=== PATIENT | male | born 1970 | race Native Hawaiian/Other Pacific Islander ===

== ENCOUNTER 2018-09-15 12:41 | Emergency (ER) | payer BC ==
[2018-09-15 12:56] VITALS: BMI 27.8
[2018-09-15 13:02] VITALS: TEMP 97.7
[2018-09-15] MEDS ORDERED: Sodium Chloride 0.9% 1,000 ML IV ONE ×2 (14:25→15:20)
[2018-09-15 14:50] LABS: BASO % 0.3 % (0.0-2.0); EOS % 0.4 % (0.0-4.0); HEMOGLOBIN 15.1 g/dL (12.0-18.0); LYMPH # 0.7 K/uL (1.0-4.3); LYMPH % 10.6 % (20.0-40.0); MEAN CELL VOLUME 89.8 fL (80.0-94.0); MEAN CORPUSCULAR HEMOGLOBIN 30.6 pg (27.0-31.0); MONO # 0.4 K/uL (0.0-0.8); MONO % 6.4 % (0.0-10.0); NEUT % 82.3 % (50.0-75.0); NRBC % 0.1 % (0.0-2.0); RBC 4.94 Mil/uL (4.40-5.90); RED CELL DISTRIBUTION WIDTH 13.3 % (11.5-14.5); WHITE BLOOD COUNT 6.1 K/uL (4.8-10.8)
[2018-09-15] MEDS ORDERED: Sodium Chloride 0.9% 1,000 ML ONE (14:53)
--- NOTE | 2018-09-15 14:57 | C.PDOC ---
History Of Present Illness 48yo male, comes to ER reporting abdominal cramping and nausea since yesterday. Patient states he has been on a strict diet and 2 days ago, he "had a lot of dietary indiscretion" after which he developed the pain. Patient denies any vomiting or diarrhea and states he has normal bowel movements. Patient denies any fever, chills, or dysuria. No additional complaints. PMD: Nneka Calvert Time Seen by Provider: 09/15/18 13:49 Chief Complaint (Nursing): Abdominal Pain History Per: Patient History/Exam Limitations: no limitations Onset/Duration Of Symptoms: Days (1) Current Symptoms Are (Timing): Still Present Quality Of Discomfort: Cramping, "Pain" Associated Symptoms: Nausea. denies: Fever, Chills, Vomiting, Diarrhea Additional History Per: Patient Past Medical History Reviewed: Historical Data, Nursing Documentation, Vital Signs Vital Signs: Last Vital Signs Temp 97.7 F 09/15/18 12:57 Pulse 75 09/15/18 12:57 Resp 18 09/15/18 12:57 BP 156/84 H 09/15/18 12:57 Pulse Ox 100 09/15/18 12:57 - Medical History PMH: Hypercholesterolemia, Hypothyroidism Surgical History: No Surg Hx Family History: States: No Known Family Hx - Social History Hx Alcohol Use: Yes Hx Substance Use: No - Immunization History Hx Tetanus Toxoid Vaccination: No Hx Influenza Vaccination: No Hx Pneumococcal Vaccination: No Review Of Systems Constitutional: Negative for: Fever, Chills Gastrointestinal: Positive for: Nausea, Abdominal Pain. Negative for: Vomiting, Diarrhea, Constipation Genitourinary: Negative for: Dysuria, Hematuria Physical Exam - Physical Exam Appears: Non-toxic, No Acute Distress Skin: Normal Color, Warm Head: Atraumatic, Normacephalic Eye(s): bilateral: Normal Inspection Neck: Normal ROM, Other (throidectomy scar ) Chest: Symmetrical Cardiovascular: Rhythm Regular Respiratory: Normal Breath Sounds Gastrointestinal/Abdominal: Soft, Tenderness (diffuse abdominal tenderness), No Guarding, No Rebound Back: Normal Inspection Extremity: Normal ROM Neurological/Psych: Oriented x3 ED Course And Treatment - Laboratory Results Result Diagrams: 09/15/18 14:39 09/15/18 14:39 O2 Sat by Pulse Oximetry: 100 (RA) Pulse Ox Interpretation: Normal Progress Note: Basic labs ordered. Patient given IV Fluids and Bentyl. Disposition Counseled Patient/Family Regarding: Studies Performed, Diagnosis, Need For Followup, Rx Given - Disposition Referrals: Nneka Calvert MD [Medical Doctor] - Disposition: HOME/ ROUTINE Disposition Time: 17:20 Condition: STABLE Additional Instructions: FOLLOW UP WITH YOUR DOCTOR TUESDAY USE MEDICATION NEEDED FOR ABDOMINAL CRAMPING RETURN TO ER IF SYMPTOMS WORSEN DRINK PLENTY OF CLEAR FLUIDS Prescriptions: Dicyclomine [Bentyl] 20 mg PO Q6 PRN #15 tab PRN Reason: ABDOMINAL CRAMPING Instructions: Acute Abdomen (Belly Pain), Adult (DC) Forms: [employer] (Romanian) Print Language: PORTUGUESE - Clinical Impression Clinical Impression: Abdominal cramping, Dietary indiscretion - Scribe Statement The provider has reviewed the documentation as recorded by the Joel Landaverde Provider Attestation: All medical record entries made by the Joel were at my direction and personally dictated by me. I have reviewed the chart and agree that the record accurately reflects my personal performance of the history, physical exam, medical decision making, and the department course for this patient. I have also personally directed, reviewed, and agree with the discharge instructions and disposition.
[2018-09-15 15:04] LABS: ALB/GLOB RATIO 1.4 (1.0-2.1); ALBUMIN 4.5 g/dL (3.5-5.0); ALT/SGPT 30 U/L (21-72); AST/SGOT 36 U/L (17-59); BLOOD UREA NITROGEN 15 mg/dL (9-20); CALCIUM 9.4 mg/dl (8.6-10.4); GFR NON-AFRICAN AMERICAN > 60; LIPASE 102 U/L (23-300)
[2018-09-15 15:15] LABS: URINE BILIRUBIN NEGATIVE (NEGATIVE); URINE BLOOD 2+ (NEGATIVE); URINE CLARITY Clear (Clear); URINE COLOR Yellow (YELLOW); URINE GLUCOSE (UA) NORMAL (Normal); URINE LEUKOCYTE ESTERASE NEG Leu/uL (Negative); URINE PROTEIN NEGATIVE (NEGATIVE); URINE UROBILINOGEN NORMAL mg/dL (0.2-1.0)
[2018-09-15 17:43] VITALS: BP 133/78; PULSE 69; RESP 20; O2SAT 99
== END 2018-09-15 18:22 | disposition home or self-care (01) ==
LOC: C.ER 12:41
DX: R10.9 Unspecified abdominal pain (principal); E63.9 Nutritional deficiency, unspecified; E78.00 Pure hypercholesterolemia, unspecified; E03.9 Hypothyroidism, unspecified
CPT/HCPCS: 80053; 81001; 83690; 85025; 96361; 96374; 99284; J1885; J7030

== ENCOUNTER 2018-09-19 14:39 | Emergency (ER) | payer BC ==
[2018-09-19 14:40] VITALS: BMI 27.8
[2018-09-19 15:18] VITALS: RESP 18; TEMP 98.1; O2SAT 100
--- NOTE | 2018-09-19 15:27 | C.PDOC ---
History Of Present Illness 48 y/o male presents to ED with c/o left upper abdominal pain radiating to left back for 1 week. Patient states pain is worse when eating and at times becomes severe. Patient denies nausea, vomiting, diarrhea, fever, chills, recent travel or any other complaints at this time. Time Seen by Provider: 09/19/18 15:20 Chief Complaint (Nursing): Abdominal Pain History Per: Patient History/Exam Limitations: no limitations Onset/Duration Of Symptoms: Days Location Of Pain/Discomfort: LUQ Past Medical History Reviewed: Historical Data, Nursing Documentation, Vital Signs Vital Signs: Last Vital Signs Temp 98.1 F 09/19/18 15:15 Pulse 71 09/19/18 15:15 Resp 18 09/19/18 15:15 BP 159/90 H 09/19/18 15:15 Pulse Ox 100 09/19/18 15:15 - Medical History PMH: HTN, Hypercholesterolemia, Hypothyroidism Surgical History: No Surg Hx Family History: States: No Known Family Hx - Social History Hx Alcohol Use: Yes Hx Substance Use: No - Immunization History Hx Tetanus Toxoid Vaccination: No Hx Influenza Vaccination: No Hx Pneumococcal Vaccination: No Review Of Systems Except As Marked, All Systems Reviewed And Found Negative. Constitutional: Negative for: Fever, Chills Gastrointestinal: Positive for: Abdominal Pain. Negative for: Nausea, Vomiting, Diarrhea Physical Exam - Physical Exam Additional Physical Exam Comments: Constitutional: No acute distress. Head: Normocephalic. Atraumatic. Eyes: PERRL. ENT: Moist mucous membranes. Neck: Supple. Cardiovascular: Regular rate. Radial pulse 2+ bilaterally. Chest: No tenderness. Respiratory: Clear to auscultation bilaterally. GI: Soft. Nontender. Nondistended. Back: Left CVA tenderness. Musculoskeletal: No tenderness or swelling of extremities. Skin: No rash. Neurologic: Alert, no focal deficit. ED Course And Treatment - Laboratory Results Result Diagrams: 09/19/18 16:41 09/19/18 16:41 O2 Sat by Pulse Oximetry: 100 (RA) Pulse Ox Interpretation: Normal Medical Decision Making Medical Decision Making: Plan: CT abd/pelvis with IV contrast, Blood work, UA ordered. Zofran, Pepcid and IV fluids administered. Disposition - Disposition Referrals: Wesley Coburn MD [Staff Provider] - Disposition: HOME/ ROUTINE Disposition Time: 17:37 Condition: STABLE Prescriptions: Famotidine [Pepcid] 1 tab PO BID #14 tab Ibuprofen [Motrin] 600 mg PO Q6 #25 tab Ondansetron ODT [Zofran ODT] 4 mg PO Q8 #12 odt oxyCODONE/Acetaminophen [Percocet 5/325 mg Tab] 1 tab PO Q6 #10 tab Tamsulosin [Flomax] 0.4 mg PO DAILY #5 cap Instructions: Kidney Stones (DC) Forms: [employer] (Thai) - Clinical Impression Clinical Impression: Kidney stone, Renal colic - Scribe Statement The provider has reviewed the documentation as recorded by the Scribvalerie Pearl All medical record entries made by the Cathiibe were at my direction and personally dictated by me. I have reviewed the chart and agree that the record accurately reflects my personal performance of the history, physical exam, medical decision making, and the department course for this patient. I have also personally directed, reviewed, and agree with the discharge instructions and disposition.
[2018-09-19] MEDS ORDERED: Sodium Chloride 0.9% 1,000 ML IV STA (16:10)
[2018-09-19] MEDS ORDERED: Sodium Chloride 0.9% 1,000 ML ONE (16:41)
[2018-09-19 16:45] LABS: BASO % 0.6 % (0.0-2.0); EOS # 0.2 K/uL (0.0-0.7); EOS % 2.6 % (0.0-4.0); HEMOGLOBIN 14.3 g/dL (12.0-18.0); LYMPH # 1.2 K/uL (1.0-4.3); LYMPH % 20.1 % (20.0-40.0); MEAN CELL VOLUME 89.3 fL (80.0-94.0); MEAN CORPUSCULAR HEMOGLOBIN 30.2 pg (27.0-31.0); MEAN CORPUSCULAR HGB CONC 33.9 g/dL (33.0-37.0); MEAN PLATELET VOLUME 7.4 fL (7.2-11.7); MONO # 0.6 K/uL (0.0-0.8); MONO % 9.9 % (0.0-10.0); NEUT # 3.9 K/uL (1.8-7.0); NEUT % 66.8 % (50.0-75.0); RBC 4.74 Mil/uL (4.40-5.90); RED CELL DISTRIBUTION WIDTH 13.3 % (11.5-14.5); WHITE BLOOD COUNT 5.8 K/uL (4.8-10.8)
[2018-09-19 17:05] LABS: BLOOD UREA NITROGEN 24 mg/dL (9-20); GFR NON-AFRICAN AMERICAN 50
[2018-09-19 17:09] LABS: ALBUMIN 4.1 g/dL (3.5-5.0); CALCIUM 9.1 mg/dl (8.6-10.4)
[2018-09-19 17:10] LABS: ALB/GLOB RATIO 1.3 (1.0-2.1); ALT/SGPT 28 U/L (21-72); AST/SGOT 19 U/L (17-59); LIPASE 97 U/L (23-300)
[2018-09-19 17:16] LABS: URINE BILIRUBIN NEGATIVE (NEGATIVE); URINE BLOOD NEGATIVE (NEGATIVE); URINE CLARITY Clear (Clear); URINE COLOR Straw (YELLOW); URINE GLUCOSE (UA) NORMAL (Normal); URINE LEUKOCYTE ESTERASE NEG Leu/uL (Negative); URINE PROTEIN NEGATIVE (NEGATIVE); URINE UROBILINOGEN NORMAL mg/dL (0.2-1.0)
[2018-09-19 17:37] VITALS: BP 144/81; PULSE 66
--- NOTE | 2018-09-19 17:51 | CT ---
PROCEDURE: CT Abdomen and Pelvis without Oral or IV contrast. HISTORY: abd pain, LUQ pain, worse after eating COMPARISON: None available. TECHNIQUE: Contiguous axial images of the abdomen and pelvis. No oral or IV contrast administered. Coronal and Sagittal reformats generated and reviewed. Radiation dose: Total exam DLP = 658.19 mGy-cm. This CT exam was performed using one or more of the following dose reduction techniques: Automated exposure control, adjustment of the mA and/or kV according to patient size, and/or use of iterative reconstruction technique. FINDINGS: There is limited evaluation of the solid organs without the administration of IV contrast. LOWER THORAX: No visible consolidation, pleural effusion, or pneumothorax. LIVER: Unremarkable unenhanced appearance. GALLBLADDER AND BILE DUCTS: Cholelithiasis. PANCREAS: Unremarkable unenhanced appearance. SPLEEN: 5 mm probable splenule. Otherwise unremarkable unenhanced appearance. ADRENALS: Unremarkable unenhanced appearance. KIDNEYS AND URETERS: 4 mm proximal left ureteral calculus with proximal hydroureter and hydronephrosis. Punctate nonobstructing bilateral renal calculi. BLADDER: The urinary bladder appears unremarkable. REPRODUCTIVE: The prostate gland measures approximately 3.7 x 4.2 cm. APPENDIX: The appendix appears within normal limits of caliber. No secondary signs of acute appendicitis. BOWEL: The stomach is nondistended. Lack of oral contrast limits evaluation for bowel pathology. The bowel loops appear within normal limits of caliber without evidence of intestinal obstruction. PERITONEUM: No significant free fluid. No definite free air. LYMPH NODES: No bulky lymphadenopathy identified. VASCULATURE: No significant atherosclerotic calcifications of the aorta. No aortic aneurysm. BONES: Degenerative changes of the spine. OTHER FINDINGS: None. IMPRESSION: 4 mm proximal left ureteral calculus with proximal hydroureter and hydronephrosis. Punctate nonobstructing bilateral renal calculi. Cholelithiasis. Enlarged prostate gland. Recommend correlation with PSA. Additional findings as above.
== END 2018-09-19 18:30 | disposition home or self-care (01) ==
LOC: C.ER 14:39
DX: N20.0 Calculus of kidney (principal); I10 Essential (primary) hypertension; E78.00 Pure hypercholesterolemia, unspecified
CPT/HCPCS: 74176; 80053; 81001; 83690; 85025; 87086; 96361; 96374; 96375; 99285; J1885; J2405; J7030

== ENCOUNTER → 2018-09-26 | Day surgery (SDC) | payer BC ==
[2018-09-19 14:40] VITALS: BMI 27.8
[~2018-09-26] MED LIST: Gentamicin 80 mg in 0.9% NS 80 MG/100 ML BAG IVPB SCH; HYDROmorphone 0.5 mg/0.5 ml ISec IVP PRN; Iohexol 240 (50 ml) ONE; Midazolam 2 MG/2 ML VIAL ONE; Oxycodone/Acetaminophen 5/325 mg Tab PO PRN; Propofol 10 mg/ml Inj (20 ML) ONE; cefTRIAXone 1 gm 1 GM/100 ML BAG IVPB ONE
[2018-09-26 16:18] VITALS: BP 116/69; PULSE 63; RESP 18; TEMP 97.8; O2SAT 99
--- NOTE | 2018-09-26 16:53 | RAD ---
Date of service: 09/26/2018 PROCEDURE: Intraoperative Fluoroscopy. HISTORY: LYNN KIDNEY STONES FINDINGS: Fluoroscopic assistance was provided. Fluoroscopy time = 7.1 sec. Radiation dose = 0.38482 mGy-cm. Please refer to the operative report from MIGUEL Pierson, , MD KEN.
--- NOTE | 2018-09-27 14:47 | RAD ---
Date of service: 09/26/2018 HISTORY: LYNN KIDNEY STONES COMPARISON: CT abdomen and pelvis without contrast performed 09/19/18. FINDINGS: BOWEL: Nonspecific bowel gas pattern without finding to suggest obstruction. BONES: Degenerative changes and sclerosis involving the included lumbar spine. OTHER FINDINGS: Suspect tiny calcifications in the expected location of the right renal shadow, however this is mostly obscured by overlying bowel gas. 3 mm calcification noted within the left abdomen at the level of L4. IMPRESSION: Suspect tiny calcifications in the expected location of the right renal shadow, however this is mostly obscured by overlying bowel gas. 3 mm calcification noted within the left abdomen at the level of L4.
--- NOTE | 2018-09-27 20:25 | OP ---
PROCEDURE DATE: 09/27/2018 UROLOGY OPERATIVE NOTE PREOPERATIVE DIAGNOSES: Urolithiasis, severe left renal colic, severe hydronephrosis, flank pain that is not resolving. POSTOPERATIVE DIAGNOSES: Urolithiasis, severe left renal colic, severe hydronephrosis, flank pain that is not resolving. PROCEDURE: Emergency cystoscopy, left retrograde pyelogram, insertion of left double J stent, COMPLICATIONS: There were no complications. ESTIMATED BLOOD LOSS: Less than 10 mL. SURGEON: Yoav Corley MD. FINDINGS: 1. Normal anterior urethra. 2. No stricture. The verumontanum is minimally occlusive. 3. Normal limits, about moderate to relatively occlusive, normal limits. 4. Ureteral orifice was identified and retrograde pyelogram was performed. Hydronephrosis, stone everything is identified. At the termination of the procedure, we left a double J stent in with no dangles. Draining the kidney well. There were no complications. INDICATIONS: See history and physical for further details. This is a very pleasant gentleman here with severe renal colic, who presents here for procedure. After discussing options with the patient, risks, benefits, treatment alternatives, urethroscope was introduced via urethra. Antibiotic prophylaxis used. Time-outs were called to confirm the patient and positioning. Urethroscope was introduced via urethra. The bladder emptied. The urethra is normal. No strictures. Verumontanum is moderately visually occlusive, all normal for the age of the patient. He is a 48-year-old. The procedure continued. We identified the ureteral orifice, retrograde pyelogram was performed. A wire was passed up through the kidney and then the double J stent was inserted. Films radiologist. We emptied the bladder and cystoscope removed. We had a double J stent and confirmed in good position. The patient tolerated the procedure well without complication. Yoav Corley MD
--- NOTE | 2018-09-28 06:17 | HP ---
UROLOGY EMERGENCY ADMISSION HISTORY OF PRESENT ILLNESS: This is a pleasant gentleman who I initially met yesterday. He has also had on talking to the patient over the weekend. He had presented with stone and polyp and now the pain is getting just much worse. At this point, they are bringing him to emergency. We are going to bring him to the OR for cysto and stent insertion as an emergency. PAST MEDICAL/SURGICAL HISTORY: No history of IN or CVA. SOCIAL HISTORY: Unremarkable. REVIEW OF SYSTEMS: No weight loss, chest pain, night sweats, . No previous complaints. MEDICATIONS: See chart. ALLERGIES: SEE CHART. PHYSICAL EXAMINATION: GENERAL: In no apparent distress. VITAL SIGNS: Within normal limits in the chart. NECK. No cervical or axillary lymphadenopathy. LUNGS: Clear. HEART: Normal S1 and S2. ABDOMEN: Overall soft, nontender. No flank mass appreciated. . LABORATORY DATA: CT scan as noted. He actually has stone noted left and right side of the stone. I have reviewed the film with the patient, but was causing the pain and discomfort in the mid ureteral obstructive film. We put him up on hydronephrosis. DIAGNOSES: 1. Severe renal colic on the left. 2. Hematuria. 3. Hydronephrosis. 4. Severe renal colic and stone disease. PLAN: Plan as follows. The patient is not resolving. We bring him as an emergency admission. We are going to plan for a cystoscopy, retrograde pyelogram, and stent insertion. I told him, at this point I am not planning to even remove the stone today, just want to drain the kidney. We are going to do a cystoscopy stent insertion and then afterwards we are going to plan for a shockwave lithotripsy or ureteroscopy. We may also discuss treatment of this. We did already discuss whether he is going to allow it now or wait, we will discuss further. DIAGNOSES: 1. Severe urolithiasis. 2. Severe flank pain. 3. Urolithiasis. 4. Hematuria. 5. Hydronephrosis. PLAN: As follows: 1. Antibiotic prophylaxis. 2. ____ and then further plans will follow. 3. ____. Yoav Corley MD
== END | disposition home or self-care (01) ==
LOC: C.SDS 11:32
PROVIDERS: ATTEND Urology
DX: N13.2 Hydronephrosis with renal and ureteral calculous obstruction (principal); R31.9 Hematuria, unspecified
CPT/HCPCS: 52332; 74018; J0696; J1170; J1580; Q9966

== ENCOUNTER 2018-10-21 10:35 | Outpatient (CLI) | payer BC | END 2018-10-21 10:36 | disposition home or self-care (01) | LOC: C.RADH 10:35 ==